=== PATIENT | female | born 1995 | race Caucasian/White ===

== ENCOUNTER 2017-12-05 13:30 | Emergency (ER) | payer OTHER ==
[~2017-12-05] VITALS: Ht 177.8 cm; Wt 73.8 kg
[2017-12-05 14:07] LABS: HEMOGLOBIN 13.5 G/DL (11.9-15.5); MCH 30.6 PG (29.0-34.0); MCHC 34.6 G/DL (30.0-36.0); MCV 88.4 FL (83-99); PLATELET COUNT 172 K/uL (156-360); RBC DIS.WIDTH-CV 12.3 % (11.8-14.6); RBC DIS.WIDTH-SD 40.1 % (39-53); RED BLOOD COUNT 4.41 M/uL (3.80-5.20); WHITE BLOOD COUNT 4.8 K/uL (4.1-10.2)
[2017-12-05 14:17] LABS: CHLORIDE 107 mEq/L (99-109); SODIUM 137 mEq/L (136-147)
[2017-12-05 14:19] LABS: GLUCOSE 83 mg/dL (70-99)
[2017-12-05 14:23] LABS: CREATININE 0.8 mg/dL (0.6-1.3)
[2017-12-05 14:24] LABS: UREA NITROGEN (BUN) 10 mg/dL (9-23)
[2017-12-05 14:26] LABS: GFR ESTIMATE (CALCULATED) > 59 mL/min/
[2017-12-05 14:50] LABS: QUANTITATIVE HCG < 4.0 MIU/ML
[2017-12-05 15:15] LABS: APPEARANCE CLEAR ((CLEAR)); BILIRUBIN NEGATIVE; BLOOD NEGATIVE; COLOR YELLOW ((YELLOW)); GLUCOSE (STRIP) NEGATIVE; KETONES NEGATIVE; LEUKOCYTES NEGATIVE; NITRITE NEGATIVE; PROTEIN (STRIP) NEGATIVE; SPECIFIC GRAVITY 1.018 (1.000-1.030); UCUL ADDED? NO; UROBILINOGEN 0.2 MG/DL (0.2-1.0)
[2017-12-05] MEDS ORDERED: FLEXERIL10 MG PO (16:51)
[2017-12-05] MEDS ORDERED: LIDODERM 5% P1 PATCH TD (16:51)
[2017-12-05 17:26] VITALS: BP 123/78
== END 2017-12-05 17:27 | disposition home or self-care (01) ==
LOC: EME 13:30
DX: R10.9 Unspecified abdominal pain (principal); M54.9 Dorsalgia, unspecified; R11.2 Nausea with vomiting, unspecified; R32 Unspecified urinary incontinence; Z87.440 Personal history of urinary (tract) infections; F17.200 Nicotine dependence, unspecified, uncomplicated
CPT/HCPCS: 74176; 80048; 81003; 84702; 85027; 99281; 99284; J3010; J7030; Q0177